=== PATIENT | female | born 2000 | race Two or more races ===

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

== ENCOUNTER 2022-10-21 13:13 | Emergency (ER) | payer MEDICAID ==
[~2022-10-21] VITALS: Ht 157.5 cm; Wt 63.0 kg
[2022-10-21 15:25] LABS: Basophils # (auto) 0 10 ^3/uL (0-0.2); Basophils % (auto) 0.3 % (0.0-2.0); Eosinophils # (auto) 0 10 ^3/uL (0-0.8); Eosinophils % (auto) 0.1 % (0.0-7.0); Hematocrit 41.8 % (36.0-46.0); Hemoglobin 14.3 g/dL (12.2-16.2); Lymphocytes # (auto) 0.5 10 ^3/uL (0.4-5.4); Lymphocytes % (auto) 5.4 % (10.0-50.0); Mean Corpuscular Hemoglobin 30.5 pg (28.0-32.0); Mean Corpuscular Hgb Conc. 34.2 g/dL (32.0-36.0); Mean Corpuscular Volume 89.1 fL (80.0-100.0); Monocytes # (auto) 0.6 10 ^3/uL (0-1.3); Neutrophils # (auto) 8.3 10 ^3/uL (1.6-8.6); Neutrophils % (auto) 88.2 % (37.0-80.0); Nucleated Red Blood Cells % 0.1 %; Red Cell Distribution Width 12.7 % (11.8-14.3); White Blood Cell 9.4 10^3/uL (4.4-10.8)
[2022-10-21] MEDS ORDERED: KETOROLAC TROMETH 30 MG/ML 1ML VIAL IV ONE (15:30)
[2022-10-21] MEDS ORDERED: SODIUM CHLORIDE 0.9% 1,000 ML IV ONE (15:30)
[2022-10-21] MEDS ORDERED: ONDANSETRON HCL 4 MG/2 ML VIAL IV ONE (15:30)
[2022-10-21 15:31] LABS: Albumin 3.9 g/dL (3.4-5.0); Calcium 9.3 mg/dL (8.5-10.1); Potassium 3.9 mmol/L (3.5-5.1)
[2022-10-21 15:34] LABS: Bilirubin, Total 0.4 mg/dL (0.2-1.0); Total Protein 7.3 g/dL (6.4-8.2)
[2022-10-21] MEDS ORDERED: ONDA-144 PO (15:57)
[2022-10-21 16:15] LABS: BUN/Creatinine Ratio 15.1
[2022-10-21 17:28] VITALS: BP 118/71
== END 2022-10-21 17:50 | disposition home or self-care (01) ==
LOC: ER 13:18
DX: J10.1 Influenza due to other identified influenza virus with other respiratory manifestations (principal); E86.0 Dehydration; Z20.822 Contact with and (suspected) exposure to COVID-19; Z87.442 Personal history of urinary calculi
CPT/HCPCS: 36415; 80053; 85025; 87426; 87804; 96361; 96374; 96375; 99284; J1885; J2405; J7030